=== PATIENT | female | born 1955 | race African-American/Black ===

== ENCOUNTER 2016-12-26 12:15 | Emergency (ER) | payer OTHER ==
[~2016-12-26] VITALS: Ht 154.9 cm; Wt 83.5 kg
[~2016-12-26 12:15] MED LIST: AMITRIPTYLINE; AMITRIPTYLINE H25 M4 PO; CIPROFLOXACIN500 M1 PO; CYCLOBENZAPRINE10 MG PO; CYMBALTA; FLAGYL500 MG PO; FLEXERIL; NORCO 5-325 TA1 EACH PO; PAROXETINE HCL20 MG PO; PAXIL; PERCOCET 5-3251 EACH PO; PRAVACHOL; PRAVACHOL40 MG PO; ZOFRAN ODT4 MG PO
[2016-12-26] MEDS ORDERED: BACTRIM DS TAB1 EACH PO (13:17)
[2016-12-26] MEDS ORDERED: ULTRAM 50MG TAB50 MG PO (13:37)
== END 2016-12-26 13:37 | disposition home or self-care (01) ==
LOC: ER 12:15
DX: N61.1 Abscess of the breast and nipple (principal); F17.210 Nicotine dependence, cigarettes, uncomplicated

== ENCOUNTER → 2017-08-29 | Outpatient (CLI) | payer OTHER ==
[~2017-08-29] MED LIST changes: +AMITRIPTYLINE H75 M1 PO; +ASPIR 8181 MG PO; +BACTRIM DS TAB1 EACH PO; +FLEXERIL PO; +HYDROCODONE-AP1 EAC6 PO; +LAXATIVE5 M1 PO; +LIORESAL 10 MG10 MG PO; +LIPITOR 20 MG T20 M1 PO; +MEDROLDOSEPACK PO; +OXYCODONE HCL 55 MG PO; +PENNSAID2 GM TOP; +ULTRAM 50MG TAB50 MG PO; +VITAMIN D1000 UNI1 PO
== END ==
LOC: RAD 01:09
DX: Z12.31 Encounter for screening mammogram for malignant neoplasm of breast (principal)

== ENCOUNTER 2018-08-14 15:01 | Emergency (ER) | payer OTHER ==
[~2018-08-14] VITALS: Ht 167.6 cm; Wt 77.1 kg
[2018-08-14 15:32] LABS: ABSOLUTE NEUTROPHILS 3.8 thou/uL (1.4-8.2); BASOPHILS 1.7 % (0.0-2.0); EOSINOPHILS 1.7 % (0.0-3.0); HEMATOCRIT 37.9 % (37.0-47.0); LYMPHOCYTES 40.5 % (24.0-44.0); MCH 31.8 pg (26.0-34.0); MCHC 34.2 g/dL (28.0-37.0); MCV 92.9 fL (80.0-100.0); MONOCYTES 5.5 % (1.0-8.0); PLATELET COUNT 307 thou/uL (150-400); POLYS 50.6 % (36.0-66.0); RBC 4.08 mil/uL (4.20-5.00); RDW 12.7 % (10.5-14.5); WBC 7.4 thou/uL (4.0-11.0)
[2018-08-14 15:40] LABS: ANION GAP 8 mmol/L (7-16); BUN 13 mg/dL (7-18); CALCIUM 9.4 mg/dL (8.5-10.1); CHLORIDE 104 mmol/L (98-107); CO2 27 mmol/L (21-32); CREATININE 0.9 mg/dL (0.6-1.0); GLUCOSE 80 mg/dL (74-106); POTASSIUM 3.8 mmol/L (3.5-5.1); SODIUM 139 mmol/L (136-145)
[2018-08-14 15:49] LABS: ALBUMIN 3.3 g/dL (3.4-5.0); DIRECT BILIRUBIN < 0.1 mg/dL (<0.1-0.3); LIPASE 113 U/L (73-393); SGOT 27 U/L (15-37); SGPT 42 U/L (30-65); TOTAL BILIRUBIN 0.1 mg/dL (<0.1-1.0); TOTAL PROTEIN 7.6 g/dL (6.4-8.2); TROPONIN-I <0.06 ng/mL (<0.06)
[2018-08-14] MEDS ORDERED: NAPROSYN500 MG PO (19:02)
[2018-08-14] MEDS ORDERED: ONDANSETRON HCL4 M2 PO (19:02)
[2018-08-14 19:12] VITALS: BP 136/82
--- NOTE | 2018-08-16 21:54 | EKG ---
[address] [address] ELECTROCARDIOGRAM REPORT Name: KLEVER QUIGLEY [id number] Admission: 08/14/18 Attend Phys: Discharge: 08/14/18 Date of : 53 Report #: [id number] THIS REPORT FOR: //name// [facility] ED Test Date: 2018-08-14 Test Time: 15:24:18 Pat Name: KLEVER QUIGLEY Department: Room: Gender: F Social Media Strategist: TIFFANI : 1955 Requested By: Rodolfo Mullen Order Number: [id number] MD: Justen Newberry Measurements Intervals Altha Rate: 93 P: 54 FL: 150 QRS: -9 QRSD: 89 T: 32 QT: 355 QTc: 442 Interpretive Statements Sinus rhythm Compared to ECG 05/31/1994 00:42:00 No significant changes Electronically Signed On 08-16-2018 21:54:23 LINE INSTALLER REPAIRER by Justen Newberry [email or web address] <ELECTRONICALLY SIGNED> By: Justen Newberry MD 08/16/18 2154 1524 1524 Justen Newberry MD /MATILDA
== END 2018-08-14 19:13 | disposition home or self-care (01) ==
LOC: ER 15:01
PROVIDERS: Emergency Medicine
DX: R11.2 Nausea with vomiting, unspecified (principal); R10.9 Unspecified abdominal pain; F17.210 Nicotine dependence, cigarettes, uncomplicated

== ENCOUNTER 2018-08-31 05:37 | Day surgery (SDC) | payer OTHER ==
[~2018-08-31] VITALS: Ht 154.9 cm; Wt 79.8 kg
[~2018-08-31 05:37] MED LIST changes: +CENTRUM SILVER1 EAC4 PO; +CHILDREN'S ASPI81 M1 PO; +NAPROSYN500 MG PO; +ONDANSETRON HCL4 M2 PO; +VITAMIN B-6100 MG PO
[2018-08-31 07:03] VITALS: BP 129/73
[2018-08-31] MEDS ORDERED: NORCO 5-325 TA1 EACH PO (08:34)
[2018-08-31] MEDS ORDERED: MIRALAX17 GM PO (08:34)
[2018-08-31] MEDS ORDERED: ONDANSETRON HCL4 M2 PO (08:34)
[2018-08-31 10:02] VITALS: BP 129/73
--- NOTE | 2018-09-01 17:06 | PATH ---
[facility] [address] [place] [address] PATHOLOGY RPT PROCEDURE Name: KLEVER QUIGLEY Room #: DEP [facility] M.R.#: [id number] ������������������ Admission: 08/31/18 ������������������ Date of : 53 Discharge: 08/31/18 Report #: [id number] Path Case #: [id number] [facility] Accession Number: [id number] . 01 Material submitted: . GALLBLADDER . 01 Clinical history: . Gallbladder disease . 02 Diagnosis: Gallbladder, cholecystectomy: - Moderate chronic cholecystitis. - Cholelithiasis. - Reactive lymph node. (IUV:visitor services information assistant; 09/01/2018) MBR/09/01/2018 . 02 Electronically signed: . Jocelyn Soni MD, Pathologist NPI- [id number] . 01 Gross description: . The specimen is received in formalin, labeled "Pouncil, Klever, gallbladder, is a previously opened, edematous gallbladder measuring 7.5 x 5.5 with an average 0.2 cm wall. The serosa is fritz-verde, partially shaggy with the remaining smooth. Within the cystic neck region there is a fritz-pink, rubbery possible lymph node measuring 1.0 x 0.6 x 0.4 cm. The mucosa is fritz-yellow and focally hemorrhagic. There are multiple multifaceted, yellow-brown calculi and its fragments within the container measuring 5.5 x 4.0 x 1.8 cm in aggregate. No discrete masses are identified. Bicycle Technician tissue is submitted in A1. (SWS; 08/31/2018) SHS/SHS . 02 Pathologist provided ICD-10: K80.10 . 02 CPT . 862712 Specimen Comment: A courtesy copy of this report has been sent to Specimen Comment: [phone], . Specimen Comment: Report sent to / DR MARTÍNEZ Performed at: [address], [place] [id number] MD Drew Hummel MD Phone: [phone] [address] [address] PATHOLOGY RPT PROCEDURE Name: KLEVER QUIGLEY JONATHAN Room #: DEP [facility] M.R.#: [id number] ������������������ Admission: 08/31/18 ������������������ Date of : 53 Discharge: 08/31/18 Report #: [id number] Path Case #: [id number] Performed at: 02 [facility] [address] [facility], [place], [place] [id number] MD Jocelyn Soni MD Phone: [phone]
== END 2018-08-31 10:32 | disposition home or self-care (01) ==
LOC: OR 05:37 → TBA 05:39 → OR 10:32
DX: K80.10 Calculus of gallbladder with chronic cholecystitis without obstruction (principal); Z68.33 Body mass index [BMI] 33.0-33.9, adult; Z87.891 Personal history of nicotine dependence; Z98.890 Other specified postprocedural states
CPT/HCPCS: 50010; 50101; 50249; 50411; 50555; 50558; 50962; 51975; 52265; 53307; 53310; 54022; 54118; 55245; 55317; 56462; 56525; 56526; 62110; 62900; 70005